=== PATIENT | male | born 1995 | race Caucasian/White ===

== ENCOUNTER 2017-01-22 08:52 | Emergency (ER) | payer OTHER ==
[2017-01-22 11:06] VITALS: BP 130/68
== END 2017-01-22 11:06 | disposition home or self-care (01) ==
LOC: ED 08:52
DX: R00.2 Palpitations (principal); R03.0 Elevated blood-pressure reading, without diagnosis of hypertension; F17.200 Nicotine dependence, unspecified, uncomplicated; Z88.0 Allergy status to penicillin